=== PATIENT | female | born 1985 | race Hispanic/Latino ===

== ENCOUNTER 2021-03-04 19:14 | Emergency (ER) | payer OTHER ==
[~2021-03-04] VITALS: Ht 157.5 cm; Wt 77.1 kg
[2021-03-04 19:21] VITALS: BP 117/66
[2021-03-04] MEDS ORDERED: FAMO-136 PO (20:25)
[2021-03-04] MEDS ORDERED: CETI1SOL17 PO (20:25)
[2021-03-04] MEDS ORDERED: PRED20TA3 PO (20:25)
[2021-03-04] MEDS ORDERED: DEXAMETHASONE SOD PHOSPHATE 4 MG/ML 1ML VIAL IM SCH (20:30)
[2021-03-04] MEDS ORDERED: FAMOTIDINE 20MG TAB PO ONE (20:30)
[2021-03-04] MEDS ORDERED: DIPHENHYDRAMINE HCL 25 MG CAPSULE PO ONE (20:30)
== END 2021-03-04 20:48 | disposition home or self-care (01) ==
LOC: EDH 19:14
DX: L50.9 Urticaria, unspecified (principal); Z79.52 Long term (current) use of systemic steroids
CPT/HCPCS: 82948; J1100; Q0163